=== PATIENT | female | born 1985 | race Hispanic/Latino ===

== ENCOUNTER 2025-05-16 05:59 | Day surgery (SDC) | payer BC ==
[2025-05-16] VITALS (11 sets, daily range): BP systolic 89–139; BP diastolic 40–85; PULSE 67–87; RESP 14–18; TEMP 97.6–98.2
[~2025-05-16] VITALS: Ht 165.1 cm; Wt 140.6 kg
[~2025-05-16 05:59] MED LIST: ACET-2247 PO; CHOL500051 PO; HYDR25TA PO; LOSA25TA41 PO; TIRZ10PE SQ
[2025-05-16] MEDS: 0.9%NACL 1000ML 1,000 ML IV ONE (06:41)
[2025-05-16] MEDS ORDERED: LIDOCAINE HCL 1% 20 ML VIAL ONE (07:39)
== END 2025-05-16 08:55 | disposition home or self-care (01) ==
LOC: DAH 05:59 → ENDO 05:59
PROVIDERS: ATTEND Internal Medicine Gastroenterology
DX: Z12.11 Encounter for screening for malignant neoplasm of colon (principal); I10 Essential (primary) hypertension; E11.65 Type 2 diabetes mellitus with hyperglycemia; E66.9 Obesity, unspecified; Z68.43 Body mass index [BMI] 50.0-59.9, adult; Z80.0 Family history of malignant neoplasm of digestive organs; Z83.719 Family history of colon polyps, unspecified
CPT/HCPCS: 82948 ×2; 81025; 45378; J7030 ×2; J2704; A4620; A4215 ×2; A4223; A7002; A4222; A4221; A4663; A4606; J3490